=== PATIENT | male | born 1960 | race Two or more races ===

== ENCOUNTER 2018-02-08 10:38 | Emergency (ER) | payer MEDICAID ==
[~2018-02-08] VITALS: Ht 175.3 cm; Wt 63.8 kg
[2018-02-08 12:05] VITALS: BP 107/62
== END 2018-02-08 12:17 | disposition home or self-care (01) ==
LOC: ED 11:36
DX: L02.31 Cutaneous abscess of buttock (principal)
CPT/HCPCS: 76857; 99284

== ENCOUNTER 2018-02-11 19:22 | Inpatient (IN) | payer MEDICAID ==
[~2018-02-11] VITALS: Ht 175.3 cm; Wt 60.6 kg
[2018-02-11 20:07] LABS: BASOPHILS # (AUTO) 0.05 x10^3/uL (0-0.1); BASOPHILS % (AUTO) 1 % (0-1); EOSINOPHILS % (AUTO) 0 % (1-7); LYMPHOCYTES # (AUTO) 1.79 x10^3/uL (1-3.4); LYMPHOCYTES % (AUTO) 22 % (22-44); MD NO; MEAN CORPUSCULAR HEMOGLOBIN 29.5 pg (27.5-34.5); MEAN CORPUSCULAR HGB CONC 33.9 g/dL (33.2-36.2); MEAN CORPUSCULAR VOLUME 87.1 fL (81-97); MEAN PLATELET VOLUME 7.8 fL (7.4-10.4); MONOCYTES # (AUTO) 0.35 x10^3/uL (0.2-0.8); MONOCYTES % (AUTO) 4 % (2-9); NEUTROPHILS % (AUTO) 74 % (42-75); PLATELET COUNT 235 x10^3/uL (130-400); RED BLOOD COUNT 4.51 x10^6/uL (4.38-5.82); RED CELL DISTRIBUTION WIDTH 13.9 % (9.4-14.8)
[2018-02-11 20:18] LABS: ALANINE AMINOTRANSFERASE 203 U/L (12-78); ALBUMIN 4.1 g/dL (3.4-5.0); ANION GAP 22 mmol/L (5-15); CALCIUM 8.1 mg/dL (8.5-10.1); CHLORIDE 90 mmol/L (98-107); CREATININE 0.95 mg/dL (0.7-1.3)
[2018-02-11 20:20] LABS: ALKALINE PHOSPHATASE 164 U/L (45-117); BILIRUBIN,TOTAL 0.8 mg/dL (0.2-1.0); TOTAL PROTEIN 8.3 g/dL (6.4-8.2)
[2018-02-11] MEDS ORDERED: SODIUM CHLORIDE 0.9% 1,000ML IVBOLUS ONE ×2 (20:30→22:00)
[2018-02-11] MEDS ORDERED: SODIUM CHLORIDE FLUSH 10ML SYR IVF ONE (20:30)
[2018-02-11] MEDS ORDERED: SODIUM CHLORIDE 0.9% 1,000 ML IV ONE (23:08)
[2018-02-11] MEDS ORDERED: ONDANSETRON 2MG/ML, 2ML IVPush PRN (23:30)
[2018-02-12] MEDS ORDERED: hydrALAzine 20 MG/ML, 1ML IVPush PRN
[2018-02-12] MEDS ORDERED: DOCUSATE 100 MG CAPSULE PO PRN
[2018-02-12] MEDS ORDERED: ACETAMINOPHEN 325 MG TABLET PO PRN
[2018-02-12] MEDS ORDERED: TEMAZEPAM 15 MG CAPSULE PO PRN
[2018-02-12] MEDS ORDERED: ONDANSETRON ODT 4 MG PO PRN
[2018-02-12 00:10] VITALS: BP 138/63
[2018-02-12] MEDS ORDERED: LORazepam 0.5MG TABLET PO PRN (00:30)
[2018-02-12] MEDS: SODIUM CHLORIDE 0.9% 1,000 ML IV SCH ×4 (00:36→23:45)
[2018-02-12 01:00] VITALS: BP 138/63
[2018-02-12 03:00] VITALS: BP 123/56
[2018-02-12 07:09] VITALS: BP 128/60
[2018-02-12] MEDS: NICOTINE 14MG/24 HR PATCH.TD24 TD SCH (08:46)
[2018-02-12 11:03] LABS: CLOSTRIDIUM DIFFICILE ANTIGEN NEGATIVE; CLOSTRIDIUM DIFFICILE TOXIN NEGATIVE (Negative)
[2018-02-12 14:30] VITALS: BP 128/73
[2018-02-12 19:34] VITALS: BP 139/68
[2018-02-13 01:15] VITALS: BP 142/70
[2018-02-13 05:06] LABS: BASOPHILS # (AUTO) 0.06 x10^3/uL (0-0.1); BASOPHILS % (AUTO) 1 % (0-1); EOSINOPHILS # (AUTO) 0.04 x10^3/uL (0-0.4); EOSINOPHILS % (AUTO) 1 % (1-7); LYMPHOCYTES # (AUTO) 0.99 x10^3/uL (1-3.4); LYMPHOCYTES % (AUTO) 17 % (22-44); MD NO; MEAN CORPUSCULAR HGB CONC 34.2 g/dL (33.2-36.2); MEAN CORPUSCULAR VOLUME 87.7 fL (81-97); MEAN PLATELET VOLUME 7.6 fL (7.4-10.4); MONOCYTES # (AUTO) 0.44 x10^3/uL (0.2-0.8); MONOCYTES % (AUTO) 8 % (2-9); NEUTROPHILS # (AUTO) 4.26 x10^3/uL (1.8-6.8); NEUTROPHILS % (AUTO) 74 % (42-75); PLATELET COUNT 146 x10^3/uL (130-400); RED BLOOD COUNT 4.18 x10^6/uL (4.38-5.82)
[2018-02-13 05:17] LABS: ALBUMIN 3.1 g/dL (3.4-5.0); ANION GAP 12 mmol/L (5-15); CHLORIDE 95 mmol/L (98-107)
[2018-02-13 05:21] LABS: ALANINE AMINOTRANSFERASE 137 U/L (12-78); ALKALINE PHOSPHATASE 135 U/L (45-117); BILIRUBIN,TOTAL 1.2 mg/dL (0.2-1.0); CREATININE 0.52 mg/dL (0.7-1.3); TOTAL PROTEIN 6.7 g/dL (6.4-8.2)
[2018-02-13] MEDS: SODIUM CHLORIDE 0.9% 1,000 ML IV SCH (07:38)
[2018-02-13] MEDS: NICOTINE 14MG/24 HR PATCH.TD24 TD SCH (09:00)
[2018-02-13 13:15] VITALS: BP 130/73
[2018-02-13] MEDS ORDERED: POTASSIUM PHOSPHATE 44 MEQ in SODIUM CHLORIDE 0.9% 500 ML IV ONE (14:30)
[2018-02-13] MEDS ORDERED: MAGNESIUM SULFATE PMX 2GM/50ML 50 ML IV ONE (14:30)
[2018-02-13] MEDS ORDERED: POTASSIUM CHLORIDE 40 MEQ in SODIUM CHLORIDE 0.9% 500 ML IV SCH (14:30)
[2018-02-13] MEDS ORDERED: GADOBUTROL 7.5 MMOL/7.5 ML PFS ONE (15:45)
[2018-02-13] MEDS ORDERED: POTASSIUM CHLORIDE 40 MEQ in SODIUM CHLORIDE 0.9% 500 ML IV ONE ×2 (18:00→18:30)
[2018-02-13] MEDS: POTASSIUM CHLORIDE 40 MEQ in SODIUM CHLORIDE 0.9% 500 ML IV SCH (18:35)
[2018-02-13 19:13] VITALS: BP 141/70
[2018-02-14 01:02] VITALS: BP 118/64
[2018-02-14] MEDS: POTASSIUM CHLORIDE 40 MEQ in SODIUM CHLORIDE 0.9% 500 ML IV SCH ×3 (04:05→20:14)
[2018-02-14 05:57] LABS: ALBUMIN 2.9 g/dL (3.4-5.0); ANION GAP 7 mmol/L (5-15); BASOPHILS # (AUTO) 0.02 x10^3/uL (0-0.1); BASOPHILS % (AUTO) 0 % (0-1); CALCIUM 8.2 mg/dL (8.5-10.1); CHLORIDE 97 mmol/L (98-107); EOSINOPHILS # (AUTO) 0.15 x10^3/uL (0-0.4); EOSINOPHILS % (AUTO) 3 % (1-7); LYMPHOCYTES # (AUTO) 1.11 x10^3/uL (1-3.4); LYMPHOCYTES % (AUTO) 23 % (22-44); MD NO; MEAN CORPUSCULAR HGB CONC 34.2 g/dL (33.2-36.2); MEAN CORPUSCULAR VOLUME 87.6 fL (81-97); MEAN PLATELET VOLUME 8.3 fL (7.4-10.4); MONOCYTES % (AUTO) 8 % (2-9); NEUTROPHILS # (AUTO) 3.21 x10^3/uL (1.8-6.8); NEUTROPHILS % (AUTO) 66 % (42-75); PLATELET COUNT 143 x10^3/uL (130-400); RED BLOOD COUNT 4.24 x10^6/uL (4.38-5.82); RED CELL DISTRIBUTION WIDTH 13.9 % (9.4-14.8)
[2018-02-14 06:02] LABS: ALANINE AMINOTRANSFERASE 167 U/L (12-78); ALKALINE PHOSPHATASE 132 U/L (45-117); BILIRUBIN,TOTAL 0.9 mg/dL (0.2-1.0); CREATININE 0.68 mg/dL (0.7-1.3); TOTAL PROTEIN 6.6 g/dL (6.4-8.2)
[2018-02-14 07:15] VITALS: BP 102/60
[2018-02-14] MEDS: NICOTINE 14MG/24 HR PATCH.TD24 TD SCH (09:00)
[2018-02-14 12:31] VITALS: BP 120/73
[2018-02-14] MEDS ORDERED: CEFAZOLIN PMX 2GM/50ML 50 ML IV SCH (18:30)
[2018-02-14 19:12] VITALS: BP 109/64
[2018-02-14] MEDS: CEFAZOLIN 2,000 MG in DEXTROSE 5% 100 ML IVPB SCH (19:18)
[2018-02-15] MEDS: POTASSIUM CHLORIDE 40 MEQ in SODIUM CHLORIDE 0.9% 500 ML IV SCH (00:37)
[2018-02-15 01:05] VITALS: BP 129/79
[2018-02-15] MEDS: CEFAZOLIN 2,000 MG in DEXTROSE 5% 100 ML IVPB SCH ×3 (03:13→18:20)
[2018-02-15 05:24] LABS: BASOPHILS # (AUTO) 0.02 x10^3/uL (0-0.1); BASOPHILS % (AUTO) 1 % (0-1); EOSINOPHILS % (AUTO) 5 % (1-7); LYMPHOCYTES # (AUTO) 1.42 x10^3/uL (1-3.4); LYMPHOCYTES % (AUTO) 32 % (22-44); MD NO; MEAN CORPUSCULAR HGB CONC 33.6 g/dL (33.2-36.2); MEAN CORPUSCULAR VOLUME 89.3 fL (81-97); MEAN PLATELET VOLUME 8.3 fL (7.4-10.4); MONOCYTES # (AUTO) 0.52 x10^3/uL (0.2-0.8); MONOCYTES % (AUTO) 12 % (2-9); NEUTROPHILS # (AUTO) 2.31 x10^3/uL (1.8-6.8); NEUTROPHILS % (AUTO) 52 % (42-75); PLATELET COUNT 156 x10^3/uL (130-400); RED BLOOD COUNT 4.27 x10^6/uL (4.38-5.82); RED CELL DISTRIBUTION WIDTH 14.1 % (9.4-14.8)
[2018-02-15 05:45] LABS: ALBUMIN 2.8 g/dL (3.4-5.0); ANION GAP 6 mmol/L (5-15); CALCIUM 8.4 mg/dL (8.5-10.1); CHLORIDE 103 mmol/L (98-107)
[2018-02-15 05:49] LABS: ALANINE AMINOTRANSFERASE 340 U/L (12-78); ALKALINE PHOSPHATASE 154 U/L (45-117); BILIRUBIN,TOTAL 0.4 mg/dL (0.2-1.0); CREATININE 0.67 mg/dL (0.7-1.3); TOTAL PROTEIN 6.6 g/dL (6.4-8.2)
[2018-02-15 07:29] VITALS: BP 106/64
[2018-02-15] MEDS: NICOTINE 14MG/24 HR PATCH.TD24 TD SCH (09:00)
[2018-02-15] MEDS ORDERED: MAGNESIUM SULFATE PMX 2GM/50ML 50 ML IV ONE (10:00)
[2018-02-15] MEDS ORDERED: POTASSIUM PHOSPHATE 44 MEQ in SODIUM CHLORIDE 0.9% 500 ML IV ONE (10:00)
[2018-02-15 12:20] VITALS: BP 112/71
[2018-02-15 18:35] VITALS: BP 97/60
[2018-02-16 01:45] VITALS: BP 110/69
[2018-02-16] MEDS: CEFAZOLIN 2,000 MG in DEXTROSE 5% 100 ML IVPB SCH ×3 (02:17→18:27)
[2018-02-16 05:01] LABS: ANION GAP 7 mmol/L (5-15); CALCIUM 8.4 mg/dL (8.5-10.1); CHLORIDE 101 mmol/L (98-107)
[2018-02-16 05:07] LABS: ALANINE AMINOTRANSFERASE 557 U/L (12-78); ALBUMIN 2.9 g/dL (3.4-5.0); ALKALINE PHOSPHATASE 177 U/L (45-117); BILIRUBIN,TOTAL 0.4 mg/dL (0.2-1.0); CREATININE 0.69 mg/dL (0.7-1.3); TOTAL PROTEIN 6.9 g/dL (6.4-8.2)
[2018-02-16 07:16] VITALS: BP 115/69
[2018-02-16 08:09] LABS: INTERNATIONAL NORMALIZED RATIO 0.93 (0.93-1.1); PROTHROMBIN TIME 9.6 Seconds (9.6-11.5)
[2018-02-16] MEDS: NICOTINE 14MG/24 HR PATCH.TD24 TD SCH (09:00)
[2018-02-16 12:24] VITALS: BP 98/61
[2018-02-16 19:04] VITALS: BP 106/64
[2018-02-17] MEDS: CEFAZOLIN 2,000 MG in DEXTROSE 5% 100 ML IVPB SCH ×3 (02:56→18:03)
[2018-02-17 03:07] VITALS: BP 111/68
[2018-02-17 05:16] LABS: ALANINE AMINOTRANSFERASE 533 U/L (12-78); ALBUMIN 2.9 g/dL (3.4-5.0); ANION GAP 4 mmol/L (5-15); CALCIUM 8.6 mg/dL (8.5-10.1); CHLORIDE 101 mmol/L (98-107)
[2018-02-17 05:18] LABS: ALKALINE PHOSPHATASE 180 U/L (45-117); BILIRUBIN,TOTAL 0.3 mg/dL (0.2-1.0); TOTAL PROTEIN 7.1 g/dL (6.4-8.2)
[2018-02-17 06:54] VITALS: BP 119/74
[2018-02-17] MEDS ORDERED: SINCALIDE (KINEVAC) 5 MCG ONE (08:18)
[2018-02-17] MEDS: NICOTINE 14MG/24 HR PATCH.TD24 TD SCH (09:00)
[2018-02-17] MEDS: THIAMINE 100MG TABLET PO SCH (10:29)
[2018-02-17] MEDS: FOLIC ACID 1 MG TABLET PO SCH (10:29)
[2018-02-17 14:15] VITALS: BP 108/71
[2018-02-17 19:14] VITALS: BP 113/67
[2018-02-18 02:07] VITALS: BP 103/57
[2018-02-18] MEDS: CEFAZOLIN 2,000 MG in DEXTROSE 5% 100 ML IVPB SCH ×2 (02:41→10:27)
[2018-02-18 05:25] LABS: CHLORIDE 104 mmol/L (98-107)
[2018-02-18 05:36] LABS: ALANINE AMINOTRANSFERASE 477 U/L (12-78); ALKALINE PHOSPHATASE 184 U/L (45-117); ANION GAP 6 mmol/L (5-15); BILIRUBIN,TOTAL 0.5 mg/dL (0.2-1.0); CALCIUM 8.9 mg/dL (8.5-10.1); CREATININE 0.83 mg/dL (0.7-1.3); TOTAL PROTEIN 7.2 g/dL (6.4-8.2)
[2018-02-18 07:50] VITALS: BP 120/72
[2018-02-18] MEDS: THIAMINE 100MG TABLET PO SCH (08:26)
[2018-02-18] MEDS: FOLIC ACID 1 MG TABLET PO SCH (08:26)
[2018-02-18] MEDS: NICOTINE 14MG/24 HR PATCH.TD24 TD SCH (08:26)
[2018-02-18 13:33] VITALS: BP 123/73
[2018-02-18] MEDS ORDERED: THIA100T6 PO (13:45)
[2018-02-18] MEDS ORDERED: NICO-486 TD (13:45)
[2018-02-18] MEDS ORDERED: FOLI-17 PO (13:45)
[2018-02-18] MEDS ORDERED: AMOX1TAB64 PO (13:45)
[2018-02-18] MEDS ORDERED: CEFAZOLIN PMX 2GM/50ML 50 ML IVPB SCH (15:30)
== END 2018-02-18 16:10 | disposition home or self-care (01) | DRG 592 ==
LOC: ED 21:46 → EDIP 23:08 → 3NE 23:56
PROVIDERS: ADMIT Hospitalist; ATTEND Internal Medicine
DX: L98.419 Non-pressure chronic ulcer of buttock with unspecified severity (principal); E43 Unspecified severe protein-calorie malnutrition; L89.313 Pressure ulcer of right buttock, stage 3; K70.10 Alcoholic hepatitis without ascites; E87.2 Acidosis; E87.1 Hypo-osmolality and hyponatremia; Z68.1 Body mass index [BMI] 19.9 or less, adult; E86.0 Dehydration; L89.159 Pressure ulcer of sacral region, unspecified stage; F17.210 Nicotine dependence, cigarettes, uncomplicated; F10.20 Alcohol dependence, uncomplicated; E87.6 Hypokalemia; Z79.899 Other long term (current) drug therapy; Z79.1 Long term (current) use of non-steroidal anti-inflammatories (NSAID)
CPT/HCPCS: 36415; 72197; 76700; 78227; 80053; 83605; 83735; 84100; 85025; 85610; 86704; 86706; 86708; 86709; 86803; 87040; 87070; 87077; 87186; 87205; 87324; 87340; 96360; A9585; J3480; A9537; C9898; J2805; J3475; J7030; J7040

== ENCOUNTER 2018-02-27 22:12 | Emergency (ER) | payer MEDICAID ==
[~2018-02-27] VITALS: Ht 175.3 cm; Wt 60.0 kg
[~2018-02-27 22:12] MED LIST: AMOX1TAB64 PO; FOLI-17 PO; NICO-486 TD; THIA100T6 PO
[2018-02-28 00:15] VITALS: BP 111/61
[2018-02-28] MEDS ORDERED: BACITRACIN ZINC OINT 500U/GM, 0.9 GM ONE (00:28)
== END 2018-02-28 01:02 | disposition home or self-care (01) ==
LOC: ED 22:49
DX: T81.31XA Disruption of external operation (surgical) wound, not elsewhere classified, initial encounter (principal); M25.562 Pain in left knee; E87.1 Hypo-osmolality and hyponatremia; X58.XXXA Exposure to other specified factors, initial encounter; Y93.89 Activity, other specified; Y92.89 Other specified places as the place of occurrence of the external cause; Y99.8 Other external cause status
CPT/HCPCS: 99284

== ENCOUNTER 2018-08-21 16:28 | Emergency (ER) | payer MEDICAID ==
[~2018-08-21] VITALS: Ht 175.3 cm; Wt 52.9 kg
[~2018-08-21 16:28] MED LIST changes: -THIA100T6 PO; +THIA100T67 PO
[2018-08-21 17:22] LABS: BASOPHILS # (AUTO) 0.05 x10^3/uL (0-0.1); BASOPHILS % (AUTO) 1 % (0-1); EOSINOPHILS # (AUTO) 0.02 x10^3/uL (0-0.4); EOSINOPHILS % (AUTO) 0 % (1-7); LYMPHOCYTES % (AUTO) 16 % (22-44); MD NO; MEAN CORPUSCULAR HEMOGLOBIN 31.2 pg (27.5-34.5); MEAN CORPUSCULAR HGB CONC 34.3 g/dL (33.2-36.2); MEAN CORPUSCULAR VOLUME 90.9 fL (81-97); MEAN PLATELET VOLUME 6.9 fL (7.4-10.4); MONOCYTES # (AUTO) 0.55 x10^3/uL (0.2-0.8); MONOCYTES % (AUTO) 8 % (2-9); NEUTROPHILS # (AUTO) 5.06 x10^3/uL (1.8-6.8); NEUTROPHILS % (AUTO) 75 % (42-75); PLATELET COUNT 148 x10^3/uL (130-400); RED BLOOD COUNT 4.73 x10^6/uL (4.38-5.82); RED CELL DISTRIBUTION WIDTH 16.4 % (9.4-14.8)
[2018-08-21 17:31] LABS: ALBUMIN 3.6 g/dL (3.4-5.0); ANION GAP 13 mmol/L (5-15); CALCIUM 7.8 mg/dL (8.5-10.1); CHLORIDE 104 mmol/L (98-107)
[2018-08-21 17:40] LABS: ALANINE AMINOTRANSFERASE 138 U/L (12-78); ALKALINE PHOSPHATASE 209 U/L (45-117); BILIRUBIN,TOTAL 0.5 mg/dL (0.2-1.0); CREATININE 0.63 mg/dL (0.7-1.3); TOTAL PROTEIN 7.7 g/dL (6.4-8.2)
[2018-08-21 20:05] VITALS: BP 110/68
== END 2018-08-21 20:07 | disposition home or self-care (01) ==
LOC: ED 17:21
DX: B34.9 Viral infection, unspecified (principal); R11.2 Nausea with vomiting, unspecified; F17.200 Nicotine dependence, unspecified, uncomplicated; M00.822 Arthritis due to other bacteria, left elbow; M00.821 Arthritis due to other bacteria, right elbow
CPT/HCPCS: 36415; 71046; 80053; 85025; 85651; 86140; 93005; 99285

== ENCOUNTER 2019-04-18 02:59 | Inpatient (IN) | payer MEDICAID ==
[~2019-04-18] VITALS: Ht 175.3 cm; Wt 53.2 kg
--- NOTE | 2019-04-18 03:13 | NUR ---
MANDIE. REPORT RECEIVED FROM EMS. PT HAD GLF AT [facility] D/T ETOH. SMALL LAC ON LEFT LIP. NO LOC/BLOOD THINNER. PT STATES HE HAS PNA NOW. C/O SOB WELL. PT'S AOX4. RESPS EVEN AND UNLABORED. BP/SPO2 MONITORS IN PLACE. CALL LIGHT WITHIN REACH. EDMD AT BEDSIDE TO EVALUATE AT THIS TIME.
[2019-04-18] MEDS ORDERED: DIPH,PERTUSS(ACELL),TET VAC/PF 0.5 ML IM-VACC ONE ×2 (03:18→03:30)
--- NOTE | 2019-04-18 03:23 | NUR ---
PT IN CT NOW.
[2019-04-18] MEDS ORDERED: LIDOCAINE 1%-EPI 1:100K, 20ML SQ ONE (03:30)
[2019-04-18] MEDS ORDERED: LIDOCAINE-MPF 1%, 2ML ONE ×2 (03:43→04:24)
--- NOTE | 2019-04-18 04:23 | NUR ---
TDAP GIVEN. PT TOLERATED WELL.
[2019-04-18] MEDS ORDERED: SODIUM CHLORIDE FLUSH 10ML SYR IVF ONE (05:00)
[2019-04-18 05:24] LABS: BASOPHILS # (AUTO) 0.09 x10^3/uL (0-0.1); BASOPHILS % (AUTO) 1 % (0-1); EOSINOPHILS # (AUTO) 0.02 x10^3/uL (0-0.4); EOSINOPHILS % (AUTO) 0 % (1-7); LYMPHOCYTES % (AUTO) 26 % (22-44); MD NO; MEAN CORPUSCULAR HEMOGLOBIN 32.6 pg (27.5-34.5); MEAN CORPUSCULAR VOLUME 98.7 fL (81-97); MEAN PLATELET VOLUME 7.3 fL (7.4-10.4); MONOCYTES # (AUTO) 0.53 x10^3/uL (0.2-0.8); MONOCYTES % (AUTO) 7 % (2-9); NEUTROPHILS # (AUTO) 4.89 x10^3/uL (1.8-6.8); NEUTROPHILS % (AUTO) 66 % (42-75); PLATELET COUNT 254 x10^3/uL (130-400); RED BLOOD COUNT 4.43 x10^6/uL (4.38-5.82); RED CELL DISTRIBUTION WIDTH 13.2 % (9.4-14.8)
[2019-04-18 05:35] LABS: ALBUMIN 3.6 g/dL (3.4-5.0); ANION GAP 9 mmol/L (5-15); CALCIUM 8.3 mg/dL (8.5-10.1); CHLORIDE 104 mmol/L (98-107); CREATININE 0.64 mg/dL (0.7-1.3)
--- NOTE | 2019-04-18 05:49 | NUR ---
CT PAGED. PT WAITING FOR CT NOW.
[2019-04-18] MEDS ORDERED: OMNIPAQUE 350 MG/ML, 100ML BOTTLE ONE (06:12)
--- NOTE | 2019-04-18 06:15 | NUR ---
PT BACK TO ROOM FROM CT NOW.
[2019-04-18] MEDS ORDERED: HYDR25TA11 PO (06:45)
[2019-04-18] MEDS ORDERED: TRAZ50TA66 PO (06:46)
--- NOTE | 2019-04-18 06:54 | NUR ---
REPORT GIVEN TO KAYLEN MARI.
--- NOTE | 2019-04-18 06:58 | NUR ---
received report from linn valdivia. pt resting in bed. pt gave me contact number of home that he lives in [facility] [phone]
[2019-04-18] MEDS ORDERED: LIDOCAINE-MPF 1%, 5ML ONE (07:25)
--- NOTE | 2019-04-18 07:57 | NUR ---
CONSENT SIGNED FOR THORACENTESIS. DR. SANTIAGO AT BEDSIDE TO PERFORM THORACENTESIS. 2ND TIME DONE
--- NOTE | 2019-04-18 08:18 | NUR ---
thoracentesis completed. pt resting in bed and vitals stable.
[2019-04-18] MEDS ORDERED: AZITHROMYCIN 500 MG in SODIUM CHLORIDE 0.9% 250 ML IV ONE (09:00)
[2019-04-18] MEDS ORDERED: CEFTRIAXONE PMX 1GM/50ML 50 ML IVPB ONE (09:00)
[2019-04-18] MEDS: SODIUM CHLORIDE 0.9% 1,000 ML IV SCH ×2 (09:04→23:00)
--- NOTE | 2019-04-18 09:13 | NUR ---
AWAITING BLOOD CULTURES PRIOR TO ANTIBIOTICS HUNG.
--- NOTE | 2019-04-18 09:15 | NUR ---
ATTEMPTED TO CALL REPORT TO SUN AND NURSE NOT AVAILABLE.
[2019-04-18] MEDS ORDERED: CEFTRIAXONE PMX 1GM/50ML 50 ML ONE (09:27)
[2019-04-18] MEDS ORDERED: LORazepam 1MG TABLET PO PRN (09:30)
[2019-04-18] MEDS ORDERED: POLYETHYLENE GLYCOL 17 GM PACKET PO PRN (09:30)
[2019-04-18] MEDS ORDERED: HALOPERIDOL 5 MG/ML IVPush PRN (09:30)
[2019-04-18] MEDS ORDERED: hydrALAzine 20 MG/ML, 1ML IVPush PRN (09:30)
--- NOTE | 2019-04-18 09:32 | NUR ---
LAB INTO DRAW 2ND SET OF BLOOD CULTURES.
--- NOTE | 2019-04-18 09:41 | NUR ---
REPORT GIVEN TO RN. PT WILL BE TRANSFERRED TO FLOOR
--- NOTE | 2019-04-18 09:49 | NUR ---
BLOOD CULTURES DRAWN X2 AND ANTIBIOTICS HUNG PER MD ORDER.
--- NOTE | 2019-04-18 10:17 | NUR ---
PT TAKEN TO FLOOR
[2019-04-18 10:30] VITALS: BP 121/77
[2019-04-18] MEDS: POTASSIUM CHLORIDE 20 MEQ, MAGNESIUM SULFATE 1 GM, MVI ADULT 10 ML, THIAMINE 200 MG, FO... IV SCH (12:39)
[2019-04-18 14:20] LABS: CLOSTRIDIUM DIFFICILE ANTIGEN POSITIVE; CLOSTRIDIUM DIFFICILE TOXIN NEGATIVE (Negative)
[2019-04-18 14:33] VITALS: BP 113/75
[2019-04-18 20:04] VITALS: BP 123/82
[2019-04-18] MEDS: DOXYCYCLINE 100MG CAP PO SCH (20:51)
[2019-04-19 02:14] VITALS: BP 120/81
[2019-04-19 06:05] LABS: BASOPHILS # (AUTO) 0.07 x10^3/uL (0-0.1); BASOPHILS % (AUTO) 1 % (0-1); EOSINOPHILS # (AUTO) 0.06 x10^3/uL (0-0.4); EOSINOPHILS % (AUTO) 1 % (1-7); LYMPHOCYTES # (AUTO) 1.39 x10^3/uL (1-3.4); LYMPHOCYTES % (AUTO) 21 % (22-44); MD NO; MEAN CORPUSCULAR HEMOGLOBIN 32.9 pg (27.5-34.5); MEAN CORPUSCULAR HGB CONC 33.3 g/dL (33.2-36.2); MEAN CORPUSCULAR VOLUME 98.9 fL (81-97); MONOCYTES # (AUTO) 0.44 x10^3/uL (0.2-0.8); MONOCYTES % (AUTO) 7 % (2-9); NEUTROPHILS # (AUTO) 4.63 x10^3/uL (1.8-6.8); NEUTROPHILS % (AUTO) 70 % (42-75); PLATELET COUNT 186 x10^3/uL (130-400); RED BLOOD COUNT 4.33 x10^6/uL (4.38-5.82); RED CELL DISTRIBUTION WIDTH 13.4 % (9.4-14.8)
[2019-04-19 06:14] LABS: CHLORIDE 102 mmol/L (98-107)
[2019-04-19 06:21] LABS: ALANINE AMINOTRANSFERASE 31 U/L (12-78); ALKALINE PHOSPHATASE 97 U/L (45-117); ANION GAP 7 mmol/L (5-15); BILIRUBIN,TOTAL 1.3 mg/dL (0.2-1.0); CALCIUM 8.2 mg/dL (8.5-10.1); CREATININE 0.64 mg/dL (0.7-1.3); TOTAL PROTEIN 6.5 g/dL (6.4-8.2)
[2019-04-19 07:48] VITALS: BP 129/79
[2019-04-19] MEDS: DOXYCYCLINE 100MG CAP PO SCH (08:15)
[2019-04-19] MEDS ORDERED: LORazepam 1MG TABLET PO PRN ×2 (09:00)
[2019-04-19] MEDS ORDERED: LORazepam 2 MG/ML, 1ML IV PRN ×3 (09:00)
[2019-04-19] MEDS ORDERED: LORazepam 0.5MG TABLET PO PRN (09:00)
[2019-04-19] MEDS ORDERED: CEFTRIAXONE PMX 2GM/50ML 50 ML IV SCH (10:00)
[2019-04-19] MEDS: LACTOBACILLUS CHEW TABLET PO SCH ×3 (10:27→21:16)
[2019-04-19] MEDS: HEPARIN 5,000 UNITS/ML, 1ML SQ SCH ×2 (10:27→22:00)
[2019-04-19] MEDS: ACETAMINOPHEN 325 MG TABLET PO PRN (10:30)
[2019-04-19] MEDS: POTASSIUM CHLORIDE 20 MEQ, MAGNESIUM SULFATE 1 GM, MVI ADULT 10 ML, THIAMINE 200 MG, FO... IV SCH (11:07)
[2019-04-19] MEDS: SODIUM CHLORIDE 0.9% 1,000 ML IV SCH (11:44)
[2019-04-19 14:00] VITALS: BP 122/79
[2019-04-20] MEDS: SODIUM CHLORIDE 0.9% 1,000 ML IV SCH ×2 (01:20→20:52)
[2019-04-20 01:21] VITALS: BP 133/88
[2019-04-20 06:35] VITALS: BP 121/78
[2019-04-20] MEDS: LACTOBACILLUS CHEW TABLET PO SCH ×3 (09:03→20:52)
[2019-04-20] MEDS: POTASSIUM CHLORIDE 20 MEQ, MAGNESIUM SULFATE 1 GM, MVI ADULT 10 ML, THIAMINE 200 MG, FO... IV SCH (10:06)
[2019-04-20] MEDS: HEPARIN 5,000 UNITS/ML, 1ML SQ SCH ×2 (10:06→22:19)
[2019-04-20 14:26] VITALS: BP 116/87
[2019-04-20 19:46] VITALS: BP 118/72
[2019-04-21 02:11] VITALS: BP 112/74
[2019-04-21 06:40] VITALS: BP 114/79
[2019-04-21] MEDS: LACTOBACILLUS CHEW TABLET PO SCH ×3 (07:54→20:53)
[2019-04-21] MEDS: SODIUM CHLORIDE 0.9% 1,000 ML IV SCH ×2 (07:56→20:53)
[2019-04-21 08:00] VITALS: BP 124/79
[2019-04-21] MEDS: HEPARIN 5,000 UNITS/ML, 1ML SQ SCH ×2 (11:31→23:39)
[2019-04-21 14:44] VITALS: BP 121/74
[2019-04-21 19:08] VITALS: BP 123/78
[2019-04-22 01:57] VITALS: BP 125/78
[2019-04-22 07:09] VITALS: BP 108/67
[2019-04-22] MEDS: LACTOBACILLUS CHEW TABLET PO SCH ×3 (07:33→21:57)
[2019-04-22] MEDS: ACETAMINOPHEN 325 MG TABLET PO PRN ×2 (07:35→21:57)
[2019-04-22] MEDS: HEPARIN 5,000 UNITS/ML, 1ML SQ SCH ×2 (10:48→21:57)
[2019-04-22 13:15] VITALS: BP 115/72
[2019-04-22] MEDS: SODIUM CHLORIDE 0.9% 1,000 ML IV SCH (13:26)
[2019-04-22 18:47] VITALS: BP 127/81
[2019-04-23 02:07] VITALS: BP 115/78
[2019-04-23] MEDS: SODIUM CHLORIDE 0.9% 1,000 ML IV SCH ×2 (02:34→15:56)
[2019-04-23 06:53] VITALS: BP 117/60
[2019-04-23] MEDS: LACTOBACILLUS CHEW TABLET PO SCH ×3 (08:35→21:02)
[2019-04-23] MEDS ORDERED: ACID1TAB7 PO (09:23)
[2019-04-23] MEDS: HEPARIN 5,000 UNITS/ML, 1ML SQ SCH ×2 (11:17→23:07)
[2019-04-23 13:29] VITALS: BP_SYST 102; BP_SYST 98; BP_DIAS 64; BP_DIAS 65
[2019-04-23] MEDS: ACETAMINOPHEN 325 MG TABLET PO PRN (19:43)
[2019-04-23 20:51] VITALS: BP 93/60
[2019-04-24 01:56] VITALS: BP 102/64
[2019-04-24] MEDS: SODIUM CHLORIDE 0.9% 1,000 ML IV SCH (04:49)
[2019-04-24 07:35] VITALS: BP 108/73
[2019-04-24] MEDS: ACETAMINOPHEN 325 MG TABLET PO PRN (07:45)
[2019-04-24] MEDS: LACTOBACILLUS CHEW TABLET PO SCH (07:45)
[2019-04-24] MEDS ORDERED: DIPHENOXYLATE/ATROPINE TABLET PO PRN (08:00)
[2019-04-24] MEDS ORDERED: ACETAMINOPHEN 325 MG TABLET PO PRN (08:00)
[2019-04-24] MEDS ORDERED: DIPH1TAB6 PO (09:22)
[2019-04-24] MEDS ORDERED: LOPE2CAP94 PO (10:54)
[2019-04-24] MEDS: HEPARIN 5,000 UNITS/ML, 1ML SQ SCH (11:00)
== END 2019-04-24 12:11 | disposition home or self-care (01) | DRG 187 ==
LOC: ED 05:18 → EDIP 08:26 → 4NOR 10:21 → DCLOUNGE 04-24 12:00
PROVIDERS: ADMIT Hospitalist; ATTEND Hospitalist
PROC: 0W993ZZ Drainage of Right Pleural Cavity, Percutaneous Approach (ICD-10-PCS; principal; 2019-04-18)
PROC: 0HQ1XZZ Repair Face Skin, External Approach (ICD-10-PCS; 2019-04-18)
DX: J90 Pleural effusion, not elsewhere classified (principal); S06.0X9A Concussion with loss of consciousness of unspecified duration, initial encounter; E46 Unspecified protein-calorie malnutrition; J93.9 Pneumothorax, unspecified; Z68.1 Body mass index [BMI] 19.9 or less, adult; E86.0 Dehydration; J43.9 Emphysema, unspecified; F10.10 Alcohol abuse, uncomplicated; F17.210 Nicotine dependence, cigarettes, uncomplicated; G47.00 Insomnia, unspecified; S01.511A Laceration without foreign body of lip, initial encounter; S02.2XXA Fracture of nasal bones, initial encounter for closed fracture; W01.0XXA Fall on same level from slipping, tripping and stumbling without subsequent striking against object, initial encounter; Y92.89 Other specified places as the place of occurrence of the external cause; Z71.6 Tobacco abuse counseling
CPT/HCPCS: 12051; 32555; 36415; 70450; 70486; 71045; 71046; 71275; 72125; 80048; 80053; 82040; 82150; 82945; 83615; 83735; 83880; 83986; 84145; 84157; 85025; 87015; 87040; 87070; 87075; 87116; 87205; 87206; 87324; 87493; 88112; 88305; 89051; 90471; 90715; 96365; G0378; J0696; J1644; J3411; J3475; J3480; Q9967; J7030

== ENCOUNTER 2021-07-20 13:01 | Emergency (ER) | payer MEDICAID ==
[~2021-07-20] VITALS: Ht 175.3 cm; Wt 52.0 kg
[~2021-07-20 13:01] MED LIST changes: +ACID1TAB7 PO; +DIPH1TAB6 PO; -FOLI-17 PO; +FOLI1TAB32 PO; +HYDR-826 PO; +LOPE-114 PO; +TRAZ50TA66 PO
[2021-07-20 13:07] VITALS: BP 106/79
--- NOTE | 2021-07-20 21:12 | NUR ---
NO ANSWER FOR CT
--- NOTE | 2021-07-20 22:50 | NUR ---
NA FOR CT X 2
--- NOTE | 2021-07-21 01:48 | NUR ---
Patient given discharge instructions and they have confirmed that they understand the instructions. Patient ambulatory with crutch walking. NAD, all questions answered appropriately, denies additional needs at this time. No personal belongings left in room after discharge.
== END 2021-07-21 01:50 | disposition home or self-care (01) ==
LOC: ED 14:00
DX: S32.591A Other specified fracture of right pubis, initial encounter for closed fracture (principal); W01.0XXA Fall on same level from slipping, tripping and stumbling without subsequent striking against object, initial encounter; X58.XXXA Exposure to other specified factors, initial encounter; Y93.89 Activity, other specified; Y92.009 Unspecified place in unspecified non-institutional (private) residence as the place of occurrence of the external cause; Y99.8 Other external cause status
CPT/HCPCS: 99284